=== PATIENT | female | born 1975 | race Two or more races ===

== ENCOUNTER 2018-09-26 01:21 | Emergency (ER) | payer MEDICAID ==
[~2018-09-26] VITALS: Ht 160 cm; Wt 108.4 kg
[2018-09-26 01:30] VITALS: BP 174/84
[2018-09-26] MEDS ORDERED: methylPREDNISolone SOD SUCC 125 MG/2 ML VL IM ONE (02:45)
[2018-09-26] MEDS ORDERED: KETOROLAC TROMETH 60MG/2ML VIAL IM ONE (02:45)
== END 2018-09-26 02:47 | disposition home or self-care (01) ==
LOC: ER 01:21
DX: S23.3XXA Sprain of ligaments of thoracic spine, initial encounter (principal); K21.9 Gastro-esophageal reflux disease without esophagitis; E07.9 Disorder of thyroid, unspecified; Z88.2 Allergy status to sulfonamides; X50.3XXA Overexertion from repetitive movements, initial encounter; Y93.89 Activity, other specified; Y99.8 Other external cause status; Y92.091 Bathroom in other non-institutional residence as the place of occurrence of the external cause
CPT/HCPCS: 71046; 96372; 99284; J1885; J2930